=== PATIENT | female | born 1955 | race Caucasian/White ===

== ENCOUNTER 2017-06-29 08:32 | Emergency (ER) | payer OTHER ==
[2017-06-29] MEDS ORDERED: Aspirin 81 MG Tab.Chew PO ONE (08:42)
[2017-06-29] MEDS ORDERED: Sodium Chloride 0.9% 10 ML Syringe FLUSH PRN (08:42)
[2017-06-29 08:54] VITALS: BP 107/65
--- NOTE | 2017-06-29 08:55 | EDM.PDOC ---
ED HPI GENERAL MEDICAL PROBLEM - General Chief Complaint: Chest Pain Stated Complaint: [id number] HEART PT BACK PAIN DIZZY NAUSEA Time Seen by Provider: 06/29/17 08:45 Source of Information: Reports: Patient History Limitations: Reports: No Limitations - History of Present Illness INITIAL COMMENTS - FREE TEXT/NARRATIVE: This 62 yo female patient reports to the ED with increased upper back pain ( started at noon yesterday), chest pain with nausea/vomiting this morning and dizziness that also started this morning. The patient reports she does have a cardiac history. The patient reports her back pain started at about noon yesterday as she was sitting on her couch. The patient reports her pain is better today, but when she was in the shower this morning she started to feel lightheaded and dizzy. The patient reports then got nauseated and vomited once. The patient reports her back pain is between her shoulders at this time. The patient reports she has not had similar symptoms in the past. 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 Middle Chest Pain Score (Numeric/FACES): 7 - Related Data Allergies Allergy/AdvReac Type Severity Reaction Status Date / Time amiodarone Allergy Cannot Verified 06/29/17 08:41 Remember enalapril maleate Allergy Cannot Verified 06/29/17 08:41 [From Vasotec] Remember enalaprilat dihydrate Allergy Cannot Verified 06/29/17 08:41 [From Vasotec] Remember Home Meds: Home Meds Acetaminophen [Tylenol Extra Strength] 1 tab PO Q6H 07/29/15 [History] Amoxicillin 500 mg PO ASDIRECTED 07/29/15 [History] Aspirin [Low Dose Aspirin EC] 1 tab PO DAILY 07/29/15 [History] Ketorolac [Acular 0.5% Ophth Soln] 1 drop TOP BID 07/29/15 [History] Loratadine [Claritin] 1 tab PO ASDIRECTED PRN 07/29/15 [History] Sennosides [Senna] 2 tab PO DAILY 07/29/15 [History] metroNIDAZOLE [Metronidazole] 1 squirt TOP BID 07/29/15 [History] Past Medical History Other Cardiovascular History: v fib, tachy rythum Other Genitourinary History: slow to empty Other Dermatologic History: rosacia - Past Surgical History Other Cardiovascular Surgeries/Procedures: s/p AICD placement, s/p mitral and tricuspid annuloplasty Other Musculoskeletal Surgeries/Procedures:: L) thumb Social & Family History - Tobacco Use Smoking Status *Q: Never Smoker - Recreational Drug Use Recreational Drug Use: No ED ROS GENERAL - Review of Systems Review Of Systems: ROS reveals no pertinent complaints other than HPI. ED EXAM, GENERAL - Physical Exam Exam: See Below Exam Limited By: No Limitations General Appearance: Alert, WD/WN, Moderate Distress, Thin Eye Exam: Bilateral Eye: EOMI, Normal Inspection, PERRL Ears: Normal External Exam, Normal Canal, Hearing Grossly Normal, Normal TMs Nose: Normal Inspection, Normal Mucosa, No Blood Throat/Mouth: Normal Inspection, Normal Lips, Normal Teeth, Normal Gums, Normal Oropharynx, Normal Voice, No Airway Compromise Head: Atraumatic, Normocephalic Neck: Normal Inspection, Supple, Non-Tender, Full Range of Motion Respiratory/Chest: No Respiratory Distress, Lungs Clear, Normal Breath Sounds, No Accessory Muscle Use, Chest Non-Tender Cardiovascular: Normal Peripheral Pulses, Regular Rate, Rhythm, No Edema, No Gallop, No JVD, No Murmur, No Rub GI/Abdominal: Normal Bowel Sounds, Soft, Non-Tender, No Organomegaly, No Distention, No Abnormal Bruit, No Mass (Female) Exam: Deferred Rectal (Female) Exam: Deferred Back Exam: Normal Inspection, Full Range of Motion, NT Extremities: Normal Inspection, Normal Range of Motion, Non-Tender, Normal Capillary Refill, No Pedal Edema Neurological: Alert, Oriented, CN II-XII Intact, Normal Cognition, Normal Gait, Normal Reflexes, No Motor/Sensory Deficits Psychiatric: Normal Affect, Normal Mood Skin Exam: Warm, Dry, Intact, Normal Color, No Rash Lymphatic: No Adenopathy EKG INTERPRETATION EKG Date: 06/29/17 Time: 08:44 Rhythm: NSR [place]: Normal P-Wave: Present QRS: Normal ST-T: Normal QT: Normal Course - Vital Signs Last Recorded V/S: Last Vital Signs Temp 35.6 C 06/29/17 08:40 Pulse 68 06/29/17 08:40 Resp 18 06/29/17 08:40 BP 107/65 06/29/17 08:40 Pulse Ox 98 06/29/17 08:40 - Orders/Labs/Meds Orders: Active Orders 24 hr Category Date Time Status EKG Documentation Completion [RC] URGENT Care 06/29/17 08:39 Active Chest w Cont [CT] Urgent Exams 06/29/17 09:45 Taken UA W/MICROSCOPIC [URIN] Stat Lab 06/29/17 08:39 Uncollected Sodium Chloride 0.9% [Saline Flush] Med 06/29/17 08:42 Active 10 ml FLUSH ASDIRECTED PRN Saline Lock Insert [OM.PC] Routine Oth 06/29/17 08:42 Ordered Medication Orders Sodium Chloride (Saline Flush) 10 ml FLUSH ASDIRECTED PRN PRN Reason: Keep Vein Open Labs: Laboratory Tests 06/29/17 06/29/17 06/29/17 Range/Units 08:45 08:45 08:45 WBC 8.2 (5.0-10.0) 10^3/uL RBC 3.98 L (4.2-5.4) 10^6/uL Hgb 12.6 (12.0-16.0) g/dL Hct 39.2 (37.0-47.0) % MCV 98.5 (80-100) fL MCH 31.7 (27.0-34.0) pg MCHC 32.1 L (33.0-35.0) g/dL Plt Count 293 (150-450) 10^3/uL Neut % (Auto) 58.9 (42.2-75.2) % Lymph % (Auto) 32.5 (20.5-50.1) % Nicholas % (Auto) 7.5 (2-8) % Eos % (Auto) 0.7 L (1.0-3.0) % Baso % (Auto) 0.4 (0.0-1.0) % D-Dimer, Quantitative 434 H (0-400) ng/mL Sodium (135-145) mmol/L Potassium (3.6-5.0) mmol/L Chloride (101-111) mmol/L Carbon Dioxide (21.0-31.0) mmol/L Anion Gap BUN (7-18) mg/dL Creatinine (0.6-1.3) mg/dL Est Cr Clr Drug Dosing mL/min Estimated GFR (MDRD) BUN/Creatinine Ratio Glucose (74-105) mg/dL Calcium (8.4-10.2) mg/dl Magnesium 2.0 (1.8-2.5) mg/dL Total Bilirubin (0.2-1.0) mg/dL AST (10-42) IU/L ALT (10-60) IU/L Alkaline Phosphatase (42-121) IU/L Troponin I (0.00-0.02) ng/ml Total Protein (6.7-8.2) g/dl Albumin (3.2-5.5) g/dl Globulin Albumin/Globulin Ratio Amylase 75 (28-100) U/L Lipase 35 (22-51) U/L // Range/Units 08:45 WBC (5.0-10.0) 10^3/uL RBC (4.2-5.4) 10^6/uL Hgb (12.0-16.0) g/dL Hct (37.0-47.0) % MCV (80-100) fL MCH (27.0-34.0) pg MCHC (33.0-35.0) g/dL Plt Count (150-450) 10^3/uL Neut % (Auto) (42.2-75.2) % Lymph % (Auto) (20.5-50.1) % Nicholas % (Auto) (2-8) % Eos % (Auto) (1.0-3.0) % Baso % (Auto) (0.0-1.0) % D-Dimer, Quantitative (0-400) ng/mL Sodium 137 (135-145) mmol/L Potassium 3.8 (3.6-5.0) mmol/L Chloride 101 (101-111) mmol/L Carbon Dioxide 26.0 (21.0-31.0) mmol/L Anion Gap 13.8 BUN 17 (7-18) mg/dL Creatinine 0.7 (0.6-1.3) mg/dL Est Cr Clr Drug Dosing 70.11 mL/min Estimated GFR (MDRD) > 60 BUN/Creatinine Ratio 24.28 Glucose 122 H (74-105) mg/dL Calcium 9.2 (8.4-10.2) mg/dl Magnesium (1.8-2.5) mg/dL Total Bilirubin 0.6 (0.2-1.0) mg/dL AST 24 (10-42) IU/L ALT 18 (10-60) IU/L Alkaline Phosphatase 52 (42-121) IU/L Troponin I < 0.02 (0.00-0.02) ng/ml Total Protein 7.1 (6.7-8.2) g/dl Albumin 4.1 (3.2-5.5) g/dl Globulin 3.0 Albumin/Globulin Ratio 1.37 Amylase (28-100) U/L Lipase (22-51) U/L Meds: Medications Generic Name Dose Route Start Last Admin Trade Name Freq PRN Reason Stop Dose Admin Sodium Chloride 10 ml 06/29/17 08:42 Saline Flush FLUSH ASDIRECTED PRN Keep Vein Open Discontinued Medications Generic Name Dose Route Start Last Admin Trade Name Freq PRN Reason Stop Dose Admin Aspirin 324 mg 06/29/17 08:42 06/29/17 08:48 Aspirin PO 06/29/17 08:43 324 mg ONETIME ONE Administration Iopamidol 100 ml 06/29/17 09:45 06/29/17 10:26 Isovue-370 (76%) IVPUSH 06/29/17 09:46 58 ml ONETIME ONE Administration Departure - Departure Time of Disposition: 10:47 Disposition: Home, Self-Care 01 Condition: Fair Clinical Impression: Upper back strain Qualifiers: Encounter type: initial encounter Qualified Code(s): S29.012A - Strain of muscle and tendon of back wall of thorax, initial encounter Forms: ED Department Discharge Care Plan Goals: The patient was advised of the examination, lab, EKG, x-ray and CT results during the visit. The patient was given an IV dose of Toradol. The patient was discharged with a script for Toradol (10 mg) #20 to take 1 by mouth every 6 hours and Flexeril (10 mg) #10 to take 1 by mouth at bedtime as needed. If the patient has any additional symptoms or concerns, the patient should follow-up with her primary care facility or return to the emergency department. - My Orders Last 24 Hours: My Active Orders 06/29/17 08:39 EKG Documentation Completion [RC] URGENT UA W/MICROSCOPIC [URIN] Stat 06/29/17 08:42 Sodium Chloride 0.9% [Saline Flush] 10 ml FLUSH ASDIRECTED PRN Saline Lock Insert [OM.PC] Routine 06/29/17 09:45 Chest w Cont [CT] Urgent - Assessment/Plan Last 24 Hours: My Active Orders 06/29/17 08:39 EKG Documentation Completion [RC] URGENT UA W/MICROSCOPIC [URIN] Stat 06/29/17 08:42 Sodium Chloride 0.9% [Saline Flush] 10 ml FLUSH ASDIRECTED PRN Saline Lock Insert [OM.PC] Routine 06/29/17 09:45 Chest w Cont [CT] Urgent
[2017-06-29 09:14] LABS: CHLORIDE,CL 101 mmol/L (101-111); SODIUM,NA 137 mmol/L (135-145)
--- NOTE | 2017-06-29 09:21 | CR ---
Clinical history: 62-year-old female with chest pain. Interpretation: Sternotomy wires and cardiac pacemaker (pacer lead intact). Normal cardiac silhouette without cephalization of vascular flow, signs of alveolar edema or dependen t effusion. No lung mass, hilar lymphadenopathy or focal lobar pneumonia. No atelectasis/collapse. No pneumothora x. CONCLUSION: No acute cardiopulmonary abnormality.
[2017-06-29] MEDS ORDERED: Iopamidol 755 Mg/ML 100 ML Bottle IVPUSH ONE (09:45)
[2017-06-29] MEDS ORDERED: Ketorolac 30 MG/ML SDV IVPUSH ONE (10:48)
--- NOTE | 2017-06-29 10:55 | CT ---
CLINICAL HISTORY: 62-year-old 142 pound female complaining of mid chest pain, posteriorly, who has a serum D dimer 434 "no acute cardiopulmonary abnormality" on plain chest radiograph this patient with evidence of cardiovascular disease (sternotomy wires and cardiac pacemaker). SCAN TECHNIQUE: Volume acquisition of data from the chest (bony thorax, lungs and mediastinum) obtain ed during the intravenous administration 58 mL nonionic Isovue 370 while the patient was lying supine on the Siemens multislice CT scanner [place], [place] (PE protocol). All data archived in the PACS system for storage, reformatting axial/sagittal/coronal planes and stud y (lung/mediastinal windows). INTERPRETATION: 1. Kyphoscoliosis, mild multilevel disc disease and hypertrophic spondylosis dorsal spine. No patholo gic skeletal lesions. No dorsal spine fracture or spondylolisthesis. 2. Tiny physiologic "flow defect" pulmonary artery, posteriorly, left infrahilar region. No sign of o ther filling defect or of intraluminal thrombus. No abnormal focal lobar oligemia, atelectasis, conso lidation or peripheral pleural-based infarcts. 3. No effusions. 4. Sternotomy wires. Cardiac pacemaker. Normal cardiac silhouette. No pericardial effusion or alveola r edema. 5. No lung mass or hilar/mediastinal lymphadenopathy. CONCLUSION: Abnormalities dorsal spine. Cardiac disease. No evidence CHF, lobar pneumonia, or embolis m/infarct.
--- NOTE | 2017-06-30 10:47 | EKG ---
06/29/2017 - CONY DAVE - TIME: 08:44 a.m. FINDINGS: EKG shows normal sinus rhythm. There is nonspecific T-wave abnormality that is diffuse. [facility] /[id number]
== END 2017-06-29 11:02 | disposition home or self-care (01) ==
LOC: DL.ED 08:32
DX: S29.012A Strain of muscle and tendon of back wall of thorax, initial encounter (principal); Z88.8 Allergy status to other drugs, medicaments and biological substances; Z79.899 Other long term (current) drug therapy; Z79.82 Long term (current) use of aspirin; X58.XXXA Exposure to other specified factors, initial encounter
CPT/HCPCS: 36415; 71010; 71260; 80053; 82150; 83690; 83735; 84484; 85025; 85379; 93005; 96374; 99285; A9270; J1885; J7050; Q9967

== ENCOUNTER 2017-11-04 12:06 | Emergency (ER) | payer OTHER ==
--- NOTE | 2017-11-04 12:24 | EDM.PDOC ---
ED HPI GENERAL MEDICAL PROBLEM - General Stated Complaint: MIREILLE DOBSON, [id number] Time Seen by Provider: 11/04/17 12:30 Source of Information: Reports: Patient History Limitations: Reports: No Limitations - History of Present Illness INITIAL COMMENTS - FREE TEXT/NARRATIVE: This 62 yo female patient reports to the ED due to lower back pain. The patient reports she slipped on either the ice or wet ground and fell directly on her lower back/buttocks. The patient reports most of her pain is in the upper posterior pelvis, but also has pain in the lower back and buttocks. The patient reports her current pain is a 6/10. The patient denies any loss of consciousness before, during or after the fall. Onset: Today Duration: Minutes:, Constant Location: Reports: Back, Pelvis Quality: Reports: Ache, Dull Severity: Moderate Improves with: Reports: Rest Worsens with: Reports: Movement Context: Reports: Trauma (ground level fall) Associated Symptoms: Reports: No Other Symptoms Middle Lumbar Pain Score (Numeric/FACES): 6 - Related Data Allergies Allergy/AdvReac Type Severity Reaction Status Date / Time amiodarone Allergy Cannot Verified 06/29/17 08:41 Remember enalapril maleate Allergy Cannot Verified 06/29/17 08:41 [From Vasotec] Remember enalaprilat dihydrate Allergy Cannot Verified 06/29/17 08:41 [From Vasotec] Remember Home Meds: Home Meds Acetaminophen [Tylenol Extra Strength] 1 tab PO Q6H 07/29/15 [History] Amoxicillin 500 mg PO ASDIRECTED 07/29/15 [History] Aspirin [Low Dose Aspirin EC] 1 tab PO DAILY 07/29/15 [History] Ketorolac [Acular 0.5% Ophth Soln] 1 drop TOP BID 07/29/15 [History] Loratadine [Claritin] 1 tab PO ASDIRECTED PRN 07/29/15 [History] Sennosides [Senna] 2 tab PO DAILY 07/29/15 [History] metroNIDAZOLE [Metronidazole] 1 squirt TOP BID 07/29/15 [History] Past Medical History HEENT History: Reports: Impaired Vision Cardiovascular History: Reports: Other (See Below) Other Cardiovascular History: v fib, tachy rythum Other Genitourinary History: slow to empty Musculoskeletal History: Reports: Arthritis Other Dermatologic History: rosacia - Past Surgical History Other Cardiovascular Surgeries/Procedures: s/p AICD placement, s/p mitral and tricuspid annuloplasty Other Musculoskeletal Surgeries/Procedures:: L) thumb Social & Family History - Family History Family Medical History: Noncontributory - Tobacco Use Smoking Status *Q: Never Smoker Second Hand Smoke Exposure: No - Caffeine Use Caffeine Use: Reports: Coffee Other Caffeine Use: 1- 2 cups a day - Recreational Drug Use Recreational Drug Use: No ED ROS GENERAL - Review of Systems Review Of Systems: ROS reveals no pertinent complaints other than HPI. ED EXAM,LOWER BACK PAIN/INJURY - Physical Exam Exam: See Below Exam Limited By: No Limitations General Appearance: Alert, WD/WN, Mild Distress Eye Exam: Bilateral Eye: EOMI, Normal Inspection, PERRL Ears: Normal External Exam, Normal Canal, Hearing Grossly Normal, Normal TMs Nose: Normal Inspection, Normal Mucosa, No Blood Throat/Mouth: Normal Inspection, Normal Lips, Normal Teeth, Normal Gums, Normal Oropharynx, Normal Voice, No Airway Compromise Head: Atraumatic, Normocephalic Neck: Full Range of Motion Respiratory/Chest: No Respiratory Distress, Lungs Clear, Normal Breath Sounds, No Accessory Muscle Use, Chest Non-Tender Cardiovascular: Normal Peripheral Pulses, Regular Rate, Rhythm, No Edema, No Gallop, No JVD, No Murmur, No Rub (Female) Exam: Deferred Rectal (Female) Exam: Deferred Back Exam: Paraspinal Tenderness (mild), Vertebral Tenderness (lower back) Extremities: Normal Inspection, Normal Range of Motion Neurological: Alert, Normal Mood/Affect, Oriented x 3 Psychiatric: Normal Affect, Normal Mood Skin Exam: Warm, Dry, Intact, Normal Color, No Rash Lymphatic: No Adenopathy Course - Vital Signs Last Recorded V/S: Last Vital Signs Temp 36.6 C 11/04/17 12:25 Pulse 76 11/04/17 12:25 Resp 16 11/04/17 12:25 BP 122/66 11/04/17 12:25 Pulse Ox 98 11/04/17 12:25 Departure - Departure Time of Disposition: 13:17 Disposition: Home, Self-Care 01 Condition: Fair Clinical Impression: Fall from ground level Low back pain Qualifiers: Chronicity: acute Back pain laterality: unspecified Sciatica presence: without sciatica Qualified Code(s): M54.5 - Low back pain - Discharge Information Instructions: Back Pain, Adult, [id number] Care Plan Goals: The patient was advised of the examination and x-ray results during the visit. The patient was encouraged to rest and ice the area of discomfort. The patient may take Tylenol or ibuprofen as directed for temporary symptom relief. If the patient has any additional symptoms or concerns, the patient should follow-up with her primary care facility or return to the emergency department.
[2017-11-04 12:26] VITALS: BP 122/66
== END 2017-11-04 13:25 | disposition home or self-care (01) ==
LOC: DL.ED 12:06
DX: M54.5 Low back pain (principal); Z88.8 Allergy status to other drugs, medicaments and biological substances; Z79.899 Other long term (current) drug therapy; Z79.82 Long term (current) use of aspirin; W19.XXXA Unspecified fall, initial encounter
CPT/HCPCS: 72100; 72170; 72220; 99283

== ENCOUNTER 2021-09-03 18:13 | Emergency (ER) | payer MEDICARE, OTHER ==
[2021-09-04 01:40] VITALS: BP 125/77; PULSE 73
== END 2021-09-03 20:40 | disposition left against medical advice (07) ==
LOC: DL.ED 18:13
DX: Z53.21 Procedure and treatment not carried out due to patient leaving prior to being seen by health care provider (principal)

== ENCOUNTER 2022-09-07 07:46 | Emergency (ER) | payer MEDICARE, OTHER ==
[2022-09-07] MEDS ORDERED: Sodium Chloride 0.9% 10 ML Syringe FLUSH PRN (08:05)
[2022-09-07 08:12] VITALS: BP 114/77; PULSE 85
[2022-09-07] MEDS ORDERED: Meclizine 12.5 MG Tab PO ONE (08:46)
[2022-09-07] MEDS ORDERED: Dexamethasone 4 MG/ML SDV IVPUSH ONE (08:47)
== END 2022-09-07 09:10 | disposition home or self-care (01) ==
LOC: DL.ED 07:46
DX: R42 Dizziness and giddiness (principal); M19.90 Unspecified osteoarthritis, unspecified site; I45.10 Unspecified right bundle-branch block; Z88.8 Allergy status to other drugs, medicaments and biological substances; Z79.82 Long term (current) use of aspirin; Z79.899 Other long term (current) drug therapy
CPT/HCPCS: 36415; 70450; 80053; 81003; 83735; 84484; 85025; 85610; 93005; 96374; 99284; A9270; J1100; J3490

== ENCOUNTER 2024-03-09 12:17 | Emergency (ER) | payer MEDICARE, OTHER ==
[2024-03-09 13:07] VITALS: BP 138/76; PULSE 74
== END 2024-03-09 13:24 | disposition home or self-care (01) ==
LOC: DL.ED 12:17
DX: R07.89 Other chest pain (principal); I48.91 Unspecified atrial fibrillation; E78.00 Pure hypercholesterolemia, unspecified; I10 Essential (primary) hypertension; Z88.8 Allergy status to other drugs, medicaments and biological substances; Z79.82 Long term (current) use of aspirin; Z79.899 Other long term (current) drug therapy; Z86.16 Personal history of COVID-19
CPT/HCPCS: 71101-LT; 93005; 99285

== ENCOUNTER 2024-04-19 06:23 | Day surgery (SDC) | payer MEDICARE, OTHER ==
[~2024-04-19 06:23] MED LIST: Proparacaine 0.5% Ophth Soln 15 ML Bottle ONE
[2024-04-19] MEDS ORDERED: Ondansetron 4 MG/2 ML SDV IVPUSH PRN (06:30)
[2024-04-19] MEDS ORDERED: Acetaminophen/Codeine 300-30 MG Tab PO PRN (06:30)
[2024-04-19] MEDS ORDERED: Acetaminophen 325 MG Tab PO PRN (06:30)
[2024-04-19] MEDS: Proparacaine 0.5% Ophth Soln 15 ML Bottle EYELF ONE ×3 (07:08→08:01)
[2024-04-19] MEDS: Sodium Chloride 0.9% 10 ML Syringe FLUSH PRN (07:10)
[2024-04-19] MEDS: Moxifloxacin 0.5% Ophth Soln 3 ML Bottle EYELF ONE (07:11)
[2024-04-19] MEDS: Povidone-Iodine 5% Sterile Ophth Soln 30 ML Bottle EYELF ONE ×3 (07:11→08:01)
[2024-04-19] MEDS: Tropicamide 1% Ophth Soln 15 ML Bottle EYELF ONE (07:12)
[2024-04-19] MEDS: Phenylephrine 10% Ophth Soln 5 ML Bot EYELF ONE (07:13)
[2024-04-19] MEDS: Timolol Maleate 0.5% Ophth Soln 5 ML Bottle EYELF ONE (07:13)
[2024-04-19] MEDS: Cataract Ophth Solution EYELF ONE (07:13)
[2024-04-19] MEDS: Lidocaine 1% 30 ML SDV ONE ×2 (07:52→08:11)
[2024-04-19] MEDS: Vancomycin 500 MG SDV EYELF ONE (08:11)
[2024-04-19] MEDS: Diclofenac Sodium 0.1% Ophth Soln 5 ML Bottle EYELF ONE (08:13)
[2024-04-19] MEDS: Apraclonidine 0.5% Ophth Soln 5 ML Bot EYELF ONE (08:13)
[2024-04-19] MEDS: Dexamethasone/Neomycin/Polymyxin B Ophth Oint 3.5 GM Tube EYELF ONE (08:14)
[2024-04-19 08:43] VITALS: BP 100/58; PULSE 69
== END 2024-04-19 08:50 | disposition home or self-care (01) ==
LOC: DL.SDS 06:23
PROVIDERS: ATTEND Ophthalmology
DX: H25.812 Combined forms of age-related cataract, left eye (principal); I48.0 Paroxysmal atrial fibrillation; E78.00 Pure hypercholesterolemia, unspecified; M81.0 Age-related osteoporosis without current pathological fracture; Z79.01 Long term (current) use of anticoagulants; Z79.899 Other long term (current) drug therapy; Z79.2 Long term (current) use of antibiotics
CPT/HCPCS: A9270-GY; J3370; J3490

== ENCOUNTER 2024-09-11 06:25 | Day surgery (SDC) | payer MEDICARE, OTHER ==
[2024-09-11] MEDS: Dextrose 5%-0.45% NaCl 1,000 ML IV SCH (06:47)
[2024-09-11] MEDS ORDERED: Midazolam 1 MG/ML 2 ML SDV ONE (07:05)
[2024-09-11] MEDS ORDERED: fentaNYL 100 MCG/2 ML SDV IV ONE (07:06)
[2024-09-11] MEDS ORDERED: fentaNYL 100 MCG/2 ML SDV ONE (07:06)
[2024-09-11] MEDS ORDERED: Midazolam 1 MG/ML 2 ML SDV IV ONE (07:06)
[2024-09-11] MEDS: Midazolam 1 MG/ML 2 ML SDV IV ONE ×6 (07:23→07:29)
[2024-09-11] MEDS: fentaNYL 100 MCG/2 ML SDV IV ONE ×3 (07:23→07:32)
[2024-09-11 09:57] VITALS: BP 106/78; PULSE 59
== END 2024-09-11 09:31 | disposition home or self-care (01) ==
LOC: DL.ENDO 06:25
PROVIDERS: ATTEND Internal Medicine Gastroenterology
DX: K57.30 Diverticulosis of large intestine without perforation or abscess without bleeding (principal); I48.0 Paroxysmal atrial fibrillation; F32.A Depression, unspecified; Z79.01 Long term (current) use of anticoagulants; Z79.899 Other long term (current) drug therapy
CPT/HCPCS: 45378; J2250; J3010; J7799